=== PATIENT | female | born 1950 | race Caucasian/White ===

== ENCOUNTER 2020-12-31 21:40 | Inpatient (IN) | payer MEDICARE, OTHER ==
[~2020-12-31] VITALS: Ht 157.5 cm; Wt 75.3 kg
[2020-12-31 21:46] VITALS: BP 152/66
[2020-12-31] MEDS ORDERED: METFORMIN HCL500 M3 PO (21:52)
[2020-12-31] MEDS ORDERED: LIPITOR 20 MG T20 M1 PO (21:52)
[2020-12-31] MEDS ORDERED: CEFDINIR300 MG PO (21:53)
[2020-12-31] MEDS ORDERED: TIZANIDINE HCL4 M1 PO (21:53)
[2020-12-31] MEDS ORDERED: NEURONTIN 300M300 M2 PO (21:53)
[2020-12-31] MEDS ORDERED: VALACYCLOVIR1000 MG PO (21:54)
[2020-12-31] MEDS ORDERED: CHILDREN'S ASPI81 M1 PO (21:54)
[2020-12-31 22:59] LABS: ABSOLUTE BASOPHILS 0.1 thou/uL (0.0-0.2); ABSOLUTE EOSINOPHILS 0.2 thou/uL (0.0-0.7); ABSOLUTE LYMPHOCYTES 2.7 thou/uL (0.8-5.3); ABSOLUTE NEUTROPHILS 6.6 thou/uL (1.6-8.1); BASOPHILS 0.8 %; EOSINOPHILS 1.9 %; HEMATOCRIT 39.5 % (37.0-47.0); HEMOGLOBIN 13.1 gm/dL (12.0-15.0); LYMPHOCYTES 25.8 %; MCHC 33.2 g/dL (28.0-37.0); MCV 87.4 fL (80.0-100.0); MPV 8.5 fl. (7.2-11.1); NUCLEATED RBCS 0 /100WBC; PLATELET COUNT* 269 thou/uL (150-400); POLYS 62.5 %; RBC 4.51 mil/uL (4.20-5.00); RDW-CV 13.9 % (10.5-14.5); WBC 10.6 thou/uL (4.0-11.0)
[2020-12-31 23:02] LABS: CALCIUM 9.8 mg/dL (8.5-10.1); CREATININE 1.1 mg/dL (0.6-1.3); POTASSIUM 4.2 mmol/L (3.5-5.1)
[2020-12-31 23:07] LABS: ALBUMIN 3.3 g/dL (3.4-5.0); TOTAL BILIRUBIN 0.2 mg/dL (<0.1-1.0); TOTAL PROTEIN 6.5 g/dL (6.4-8.2)
[2021-01-01 00:25] VITALS: BP 134/52
[2021-01-01 08:15] VITALS: BP 139/61
[2021-01-01 15:34] VITALS: BP 136/57
[2021-01-01 21:00] VITALS: BP 128/57
[2021-01-02 04:50] LABS: ABSOLUTE BASOPHILS 0.1 thou/uL (0.0-0.2); ABSOLUTE EOSINOPHILS 0.3 thou/uL (0.0-0.7); ABSOLUTE LYMPHOCYTES 2.4 thou/uL (0.8-5.3); ABSOLUTE MONOCYTES 0.9 thou/uL (0.0-1.2); BASOPHILS 0.7 %; EOSINOPHILS 4.2 %; HEMATOCRIT 34.1 % (37.0-47.0); HEMOGLOBIN 11.4 gm/dL (12.0-15.0); LYMPHOCYTES 31.5 %; MCH 29.3 pg (26.0-34.0); MCHC 33.4 g/dL (28.0-37.0); MCV 87.6 fL (80.0-100.0); MONOCYTES 11.2 %; MPV 7.8 fl. (7.2-11.1); NUCLEATED RBCS 0 /100WBC; PLATELET COUNT* 229 thou/uL (150-400); POLYS 52.4 %; RBC 3.89 mil/uL (4.20-5.00); RDW-CV 13.8 % (10.5-14.5); WBC 7.6 thou/uL (4.0-11.0)
[2021-01-02 04:55] LABS: CALCIUM 8.7 mg/dL (8.5-10.1); POTASSIUM 4.2 mmol/L (3.5-5.1)
[2021-01-02 07:56] VITALS: BP 149/67
[2021-01-02 22:00] VITALS: BP 133/48
[2021-01-03 08:32] LABS: ABSOLUTE BASOPHILS 0.1 thou/uL (0.0-0.2); ABSOLUTE EOSINOPHILS 0.3 thou/uL (0.0-0.7); ABSOLUTE LYMPHOCYTES 2.8 thou/uL (0.8-5.3); ABSOLUTE MONOCYTES 0.7 thou/uL (0.0-1.2); ABSOLUTE NEUTROPHILS 4.8 thou/uL (1.6-8.1); BASOPHILS 0.8 %; EOSINOPHILS 3.4 %; HEMATOCRIT 36.6 % (37.0-47.0); HEMOGLOBIN 12.1 gm/dL (12.0-15.0); LYMPHOCYTES 32.2 %; MCH 28.7 pg (26.0-34.0); MONOCYTES 8.4 %; MPV 8.2 fl. (7.2-11.1); NUCLEATED RBCS 0 /100WBC; PLATELET COUNT* 247 thou/uL (150-400); POLYS 55.2 %; RDW-CV 13.2 % (10.5-14.5); WBC 8.8 thou/uL (4.0-11.0)
[2021-01-03 08:44] LABS: CALCIUM 8.8 mg/dL (8.5-10.1); CREATININE 0.9 mg/dL (0.6-1.3); TOTAL BILIRUBIN 0.2 mg/dL (<0.1-1.0); TOTAL PROTEIN 6.4 g/dL (6.4-8.2)
[2021-01-03 10:59] VITALS: BP 140/82
[2021-01-03 16:16] VITALS: BP 137/50
[2021-01-03 22:00] VITALS: BP 151/55
[2021-01-04 07:50] VITALS: BP 155/53
[2021-01-04] MEDS ORDERED: DOXYCYCLINE 10100 MG PO (14:22)
[2021-01-04 15:34] VITALS: BP 155/53
[2021-01-04 16:34] VITALS: BP 155/53
== END 2021-01-04 16:05 | disposition home or self-care (01) | DRG 866 ==
LOC: M.ERS 21:40 → M.ORTHSURG 23:38 → M.TBA-ER 23:38 → M.3W 01-01 00:54 → M.ORTHSURG 01-02 15:55
PROVIDERS: Internal Medicine; Personal Emergency Response Attendant; ADMIT Internal Medicine; ATTEND Internal Medicine
DX: B02.8 Zoster with other complications (principal); E87.2 Acidosis; R65.10 Systemic inflammatory response syndrome (SIRS) of non-infectious origin without acute organ dysfunction; B02.21 Postherpetic geniculate ganglionitis; H60.11 Cellulitis of right external ear; E11.9 Type 2 diabetes mellitus without complications; I25.10 Atherosclerotic heart disease of native coronary artery without angina pectoris; E78.00 Pure hypercholesterolemia, unspecified; Z95.5 Presence of coronary angioplasty implant and graft; Z98.891 History of uterine scar from previous surgery; Z79.84 Long term (current) use of oral hypoglycemic drugs; Z79.82 Long term (current) use of aspirin; Z79.899 Other long term (current) drug therapy; Z88.8 Allergy status to other drugs, medicaments and biological substances; Z88.2 Allergy status to sulfonamides

== ENCOUNTER → 2021-12-07 | Outpatient (CLI) | payer MEDICARE, OTHER ==
[~2021-12-07] MED LIST: CEFDINIR300 MG PO; CHILDREN'S ASPI81 M1 PO; DOXYCYCLINE 10100 MG PO; LIPITOR 20 MG T20 M1 PO; METFORMIN HCL500 M3 PO; NEURONTIN 300M300 M2 PO; TIZANIDINE HCL4 M1 PO; VALACYCLOVIR1000 MG PO
== END ==
LOC: M.ULTRA 08:00
PROVIDERS: ATTEND Family Medicine
DX: K76.0 Fatty (change of) liver, not elsewhere classified (principal); R11.2 Nausea with vomiting, unspecified

== ENCOUNTER → 2021-12-09 | Outpatient (CLI) | payer MEDICARE, OTHER | LOC: M.NUC 07:38 | PROVIDERS: ATTEND Family Medicine | DX: R11.2 Nausea with vomiting, unspecified (principal) ==